=== PATIENT | female | born 1980 | race Caucasian/White ===

== ENCOUNTER 2024-05-07 10:32 | Emergency (ER) | payer OTHER, SELFPAY ==
[2024-05-07 11:06] VITALS: BP 118/80; PULSE 90; TEMP 36.3
--- NOTE | 2024-05-07 11:19 | ED.URI ---
HPI - URI/Sore Throat General Chief Complaint: Upper Respiratory Infection Stated Complaint: sore throat History of Present Illness HPI Narrative: 43-year-old female presented for complaint of sore throat for 3 days. She says she has white patches on the uvula. Reports fatigue for over one week. Denies cough, sob, n/v/d/f/c. Related Data Home Medications ?Medication ?Instructions ?Recorded ?Confirmed ?Last Taken ?Type albuterol sulfate 90 mcg/actuation 1 inhalation inhalation Q4H 06/04/19 03/11/22 Unknown History aerosol inhaler aspirin 81 mg tablet,delayed 81 mg PO DAILY 12/09/20 03/11/22 Unknown History release (Adult Aspirin Regimen) Allergies Allergy/AdvReac Type Severity Reaction Status Date / Time Penicillins Allergy Mild hives Verified 05/07/24 11:06 Sulfa (Sulfonamide Allergy Mild Hives Verified 05/07/24 11:06 Antibiotics) coconut Allergy unknown Verified 05/07/24 11:06 egg Allergy unknown Verified 05/07/24 11:06 lactose AdvReac Intermediate Gastrointestinal Verified 05/07/24 11:06 Upset Review of Systems Review of Systems: CONSTITUTIONAL: Denies body aches, fever, chills, or sweats. EYES: Denies visual changes, redness, or discharge. ENT: Reports sore throat Denies rhinorrhea, congestion, or otalgia. CARDIOVASCULAR: Denies chest pain, palpitations, or edema. RESPIRATORY: Denies dyspnea. GASTROINTESTINAL: Denies abdominal pain, nausea, vomiting, or diarrhea. SKIN: Denies rash MUSCULOSKELETAL: Denies back pain, joint pain, or myalgia. NEUROLOGIC: Denies headache [facility] Past Medical History Medical History Asthma Acute tonsillitis Splenic infarct Family History Family History Father Alcoholism Mother Asthma Cancer Sibling Asthma Social History Social History Smoking status: Current every day smoker Second hand tobacco smoke exposure: No Alcohol intake: never Substance use: unknown Lack of Transportation: No Lack of Food: Never True Current Housing: I Have Housing Concerned About Future Housing: No Difficulty Paying Gas/Electric Bills: No Difficulty Paying for Meds: No Currently Unemployed: No Education: Bachelor's Degree Difficulty w/ Childcare or Family Care: No Exam Narrative: GENERAL: well-appearing, no acute distress. EYES: conjunctivae clear ENT: Mucous membranes moist. TM pearly quesada with normal light reflex bilaterally; no tragal tenderness. Oropharynx erythematous without lesions. Distal uvula irregular with white patchy discoloration. Tonsils enlarged 2+ and without exudate. No drooling, no hoarseness, no trismus, uvula midline. No tripod positioning, hot potato voice, or soft palate swelling. NECK: Supple. No lymphadenopathy CHEST: Clear to auscultation, breath sounds equal. No respiratory distress, speaks in full sentences. HEART: Regular rate and rhythm. No murmur heard. SKIN: Warm, dry, no rash. NEURO: Alert and oriented x3. Course Course Emergency Course: Patient is aware of diagnosis, understands and agrees to treatment plan. Anticipatory guidance given. Patient agrees to follow-up as directed and is aware of reasons to seek care at the emergency department. Portions of this record may have been created with voice recognition software Level of Care: Express Care Visit Vital Signs Vital signs: Vital Signs Temperature 97.3 F L 05/07/24 11:06 Pulse Rate 90 05/07/24 11:06 Blood Pressure 118/80 05/07/24 11:06 Temperature 97.3 F L 05/07/24 11:06 Pulse Rate 90 05/07/24 11:06 Blood Pressure 118/80 05/07/24 11:06 MDM - URI/Sore Throat MDM Narrative Medical decision making narrative: Neg strep result reviewed with pt. discussed physical exam findings with patient. Declines mono testing. Will send ENT referral for the irregular uvula and hx smoking. Advise supportive treatments. Patient is appropriate for outpatient treatment and follow-up. Differential Diagnosis Differential diagnosis: Likely upper respiratory infection, viral infection and pharyngitis Lab Data Labs: Lab Results 05/07/24 Range/Units 11:31 POC Grp A Strep Screen Negative (Negative) Discharge Plan Discharge Clinical Impression: Pharyngitis Patient Disposition: Home, Self-Care Condition: Stable Instructions: Antibiotic Form, Pharyngitis (ED) Additional Instructions: - Take the antibiotic as directed. Fever and sore throat typically resolve within one to three days. Most patients can return to work after 12 to 24 hours of antibiotic therapy, provided you are fever free and otherwise well. -Eat and drink things that are easy to swallow, like soft foods, cool liquids, tea with honey, or popsicles . -Salt water gargles and/or may use topical anesthetic ( Chloraseptic spray) or lozenges to relieve dryness or throat pain -Alternate Tylenol and ibuprofen as needed for pain and fever as directed. -Frequent hand washing or hand cylinder press operator is one of the best ways to prevent spread of infection. Throw away the toothbrush after 24hours of antibiotic. -Follow up with primary care provider in 2-3 days if condition is not improving -Go to the ER if you have trouble breathing, cannot drink enough fluids, have muffled voice or drooling, difficulty opening your mouth, or severe swelling. Patient Language: Welsh Prescriptions: New methylprednisolone [Medrol (Keyshawn)] 4 mg tablets,dose pack See Rx Instructions .ROUTE .COMPLEX Qty: 21 0RF Rx Instructions: orally per package directions cefdinir 300 mg capsule 300 mg PO Q12H Qty: 14 0RF No Action albuterol sulfate 90 mcg/actuation HFA aerosol inhaler 1 inhalation INHALATION Q4H minoxidil 5 % solution 1 ml topical BID Qty: 120 0RF aspirin [Adult Aspirin Regimen] 81 mg tablet,delayed release (DR/EC) 81 mg PO DAILY Follow-up/Referrals: Michelle,Russell Tellez [Other] Eliezer,MD Yvan [Non-Staff] - Time of Disposition: 11:37
[2024-05-07 11:37] LABS: EDSTREPNEGPOS1 Negative (Negative)
== END 2024-05-07 11:38 | disposition home or self-care (01) ==
PROVIDERS: Emergency Provider Nurse Practitioner Family
DX: J02.9 Acute pharyngitis, unspecified (principal); F17.200 Nicotine dependence, unspecified, uncomplicated; J45.909 Unspecified asthma, uncomplicated; Z79.82 Long term (current) use of aspirin
CPT/HCPCS: 87081; 87880; 99213; G0463

== ENCOUNTER 2024-09-09 09:33 | Emergency (ER) | payer OTHER, SELFPAY ==
[2024-09-09 09:41] VITALS: BP 122/82; PULSE 93; RESP 18; TEMP 36.2; O2SAT 98
--- NOTE | 2024-09-09 09:53 | ED.FEMALEGU ---
HPI - Female Genitourinary General Chief complaint: Urogenital-Female Stated complaint: Possible UTI Time Seen by Provider: 09/09/24 10:05 Source: patient Mode of arrival: ambulatory Limitations: no limitations History of Present Illness HPI Narrative: Here with A 3 day history of body aches, bilateral kidney pressure, painful urination, some chills, and headache. She denies any nausea, vomiting, or fever. Denies abdominal or pelvic pain. She endorses headaches and dizziness at times. She reports she is drinking tons of water. She reports helping her brother move 1 week ago and not drinking for most of the day. She reports worrying she may develop a UTI after this. She does have a history of UTIs and 1 kidney infection in the past. She notes that with her previous kidney infection in the past, she had much worse symptoms and she felt like she was dying. Related Data Home Medications ?Medication ?Instructions ?Recorded ?Confirmed ?Last Taken ?Type albuterol sulfate 90 mcg/actuation 1 inhalation inhalation Q4H 06/04/19 03/11/22 Unknown History aerosol inhaler aspirin 81 mg tablet,delayed 81 mg PO DAILY 12/09/20 03/11/22 Unknown History release (Adult Aspirin Regimen) Allergies Allergy/AdvReac Type Severity Reaction Status Date / Time Penicillins Allergy Mild hives Verified 09/09/24 09:52 Sulfa (Sulfonamide Allergy Mild Hives Verified 09/09/24 09:52 Antibiotics) coconut Allergy unknown Verified 09/09/24 09:52 egg Allergy unknown Verified 09/09/24 09:52 lactose AdvReac Intermediate Gastrointestinal Verified 09/09/24 09:52 Upset Review of Systems Review of Systems: CONSTITUTIONAL: Denies fever, or sweats. Reports sweats. EYES: Denies visual changes, redness, or discharge. ENT: Denies rhinorrhea, congestion, sore throat, or otalgia. CARDIOVASCULAR: Denies chest pain, palpitations, or edema. RESPIRATORY: Denies cough or dyspnea. GASTROINTESTINAL: Denies abdominal pain, nausea, vomiting, or diarrhea. GENITOURINARY: Reports dysuria. Denies hematuria.Reports increased urinary frequency. SKIN: Denies rash or itching. MUSCULOSKELETAL: Denies back pain, joint pain, or myalgia. Reports pain around kidneys when she takes deep breaths. NEUROLOGIC: Denies numbness, or weakness. PSYCHIATRIC: Denies anxiety or depression. All other systems reviewed are negative, except as documented in HPI. [facility] Past Medical History Medical History Asthma Acute tonsillitis Splenic infarct Family History Family History Father Alcoholism Mother Asthma Cancer Sibling Asthma Social History Social History Smoking status: Current every day smoker Second hand tobacco smoke exposure: No Alcohol intake: never Substance use: unknown Lack of Transportation: No Lack of Food: Never True Current Housing: I Have Housing Concerned About Future Housing: No Difficulty Paying Gas/Electric Bills: No Difficulty Paying for Meds: No Currently Unemployed: No Education: Bachelor's Degree Difficulty w/ Childcare or Family Care: No Comments Reviewed. Exam Narrative: GENERAL: This is a well-nourished, well-developed patient, in no apparent distress. HEAD: normocephalic, atraumatic. EYES: No drainage. EARS: External ears normal without drainage. NOSE: External nose normal with no obvious nasal discharge. THROAT: Mucous membranes moist, posterior pharynx clear. NECK: Trachea midline. CARDIOVASCULAR: Regular rate and rhythm without murmurs, gallops, or rubs. RESPIRATORY: Clear to auscultation. Breath sounds equal bilaterally. No wheezes, rales, or rhonchi. SKIN: warm, Dry, intact with no suspicious lesions or rash, good texture and turgor. NEURO: awake, alert, and oriented to person, place and time. There were no obvious focal neurologic abnormalities. EXTREMITIES: No joint tenderness, effusion, or edema noted. BACK: Nontender without deformity. No CVA tenderness. Course Course Emergency Course: Patient is aware of diagnosis, understands and agrees to treatment plan. Anticipatory guidance was given. Patient agrees to follow-up as directed and is aware of reasons to seek care at the emergency department. Level of Care: Express Care Visit Vital Signs Vital signs: Vital Signs Temperature 36.2 C L 09/09/24 09:41 Pulse Rate 93 09/09/24 09:41 Respiratory Rate 18 09/09/24 09:41 Blood Pressure 122/82 09/09/24 09:41 Pulse Oximetry 98 04/21/25 09:41 Oxygen Delivery Room Air 09/09/24 09:41 Temperature 36.2 C L 09/09/24 09:41 Pulse Rate 93 09/09/24 09:41 Respiratory Rate 18 09/09/24 09:41 Blood Pressure 122/82 09/09/24 09:41 Pulse Oximetry 98 09/09/24 09:41 Oxygen Delivery Room Air 09/09/24 09:41 Reviewed. MDM - Female Genitourinary MDM Narrative Medical decision making narrative: Here with urinary symptoms of burning and increased frequency. UA showed +blood, leukocytes, and protein. SG was 1.025. Reviewed UTI vs complicated UTI considering kidney pain with deep breaths. Treated for complicated UTI. Shared decision making with patient based on UA results and medications chosen to treat. Lab Data Lab results narrative: UA results reviewed +blood, protein, and leukocytes. SG 1.025. Discharge Plan Discharge Clinical Impression: Complicated UTI (urinary tract infection) Patient Disposition: Home Condition: Stable Instructions: Antibiotic Form, Urinary Tract Infection in Women (DC) Additional Instructions: Take medications as prescribed.? Follow printed instructions provided. Follow-up with primary care provider. Go to the ER for any worsening symptoms or concerns. Patient Language: Puerto Rican Prescriptions: New ciprofloxacin HCl 500 mg tablet 500 mg PO Q12H 7 Days Qty: 14 0RF phenazopyridine 200 mg tablet 200 mg PO TID Qty: 6 0RF No Action albuterol sulfate 90 mcg/actuation HFA aerosol inhaler 1 inhalation INHALATION Q4H aspirin [Adult Aspirin Regimen] 81 mg tablet,delayed release (DR/EC) 81 mg PO DAILY Follow-up/Referrals: Denys,Russell Tellez DO [Primary Care Provider] - Time of Disposition: 10:24
[2024-09-09 10:00] LABS: EDUAAPPEAR Cloudy; EDUABILI Negative (Negative); EDUABLOOD Trace (Negative); EDUACOLOR1 Yellow; EDUAGLUCOSE Negative (Negative); EDUAKETONE Negative (Negative); EDUALEUKO 1+ (Negative); EDUANITRATE Negative (Negative); EDUAPH 6.5; EDUAPROTEIN Trace (Negative); EDUASPGRAVITY 1.025
--- OUTSIDE RECORDS SUMMARY | 2024-09-09 10:36 | XMS_ITS | Clinical Summary ---
Author Organization [facility] Address [address], [place] [address] [place] [address] Phone Care Team Providers Care Hand Former Name Role Phone Unavailable Primary Care Provider Unavailabl e Allergies Active Allergy Reactions Criticality Noted Date Comments Clarithromycin Hives 04/07/2017 Coconut (Cocos Nucifera) Anaphylaxis High 04/07/2017 Egg-Derived Products Unknown 04/07/2017 Lactose Nausea 04/07/2017 Oxycodone-Acetaminophen Shortness of Breath High Penicillins Hives 04/07/2017 Medications albuterol (PROVENTIL, VENTOLIN) (5 MG/ML) 0.5% Nebulizer Soln take by inhalation as needed. Active Xarelto 20 MG Tablet TAKE 1 TABLET DAILY WITH DINNER FOR PREVENTION OF UNWANTED CLOT IN VEINS 30 Tab 11 0 Active aspirin 81 MG Chewable Tablet Take 81 mg by mouth. 0 Active cephALEXin (KEFLEX) 500 MG Capsule 0 Active enoxaparin (LOVENOX) 100 MG/ML Solution 0 Active Active Problems Problem Noted Date Diagnosed Date Encounter for smoking cessation counseling 10/23 Hepatitis B surface antigen positive 07/11/2019 Elevated liver enzymes 07/04/2019 Anemia 06/06/2019 Leukocytosis 06/06/2019 Splenic infarct 04/14/2017 Immunizations Immunization Administration Dates Next Due Tuberculin Skin Test; Purifi ed Protein Derivative Solutiol 04/06/2011 Family History Medical History Relation Name Comments Cancer Mother ovarian, uterin e, hodgkins, and unknown Glaucoma Mother Relation Name Status Comments Mother Social History Tobacco Use Types Packs/Day Years Used Date Smoking Tobacco: Every Day Cigarettes Started: 04/14/1992 Smokeless Tobacco: Never Tobacco Cessation:Ready to Q uit: No Alcohol Use Standard Drinks/Week Comments No 0 (1 standard drink = 0.6 oz pur e alcohol) PHQ-2 Answer Date Recorded PHQ-2 Score 0 06/06/2019 Comments No Sex and Gender Information Value Date Recorded Sex Assigned at Not on file Legal Sex Female 10:29 AM ONCOLOGY NURSE Gender Identity Not on file Sexual Orientation Not on file Last Filed Vital Signs Vital Sign Reading Time Taken Comments Blood Pressure 118/58 04/23/2020 12:25 PM ONCOLOGY NURSE Pulse 78 04/23/2020 12:25 PM ONCOLOGY NURSE Temperature 36.9 C (98.4 F) 04/23/2020 12:25 PM ONCOLOGY NURSE Respiratory Rate 18 04/23/2020 12:25 PM ONCOLOGY NURSE Oxygen Saturation 98% 04/23/2020 12:25 PM ONCOLOGY NURSE Inhaled Oxygen Concentration - - Weight 96.7 kg (213 lb 3.2 oz) 04/23/2020 12:25 PM ONCOLOGY NURSE Height 175.3 cm (5' 9 ) 07/11/2019 2:51 PM ONCOLOGY NURSE Body Mass Index 31.48 07/11/2019 2:51 PM ONCOLOGY NURSE Plan of Treatment Health Maintenance Due Date Last Done Comments TdaP Immunization 1978 Hepatitis B Immunization (1 of 3 - 19+ 3-dose series) 1997 Colonoscopy 09/08/2023 Colorectal Cancer Screening 09/08/2023 Influenza Immunization (#1) 2024 SARS-COV-2 Immunization ( season) 2024 Respiratory Syncytial Virus (RSV) Immunization (Adult) (1 - 1-dose 75+ series) 2053 Hepatitis C Virus (HCV) Screening Completed 020 Meningococcal Immunization (ACWY) Aged Out No longer eligible based on patient's age to complete this topic Pneumococcal Immunization Combined Aged Out No longer eligible based on patient's age to complete this topic Rotavirus Immunization Aged Out No lo nger eligible based on patient's age to complete this topic Insurance [employer]
--- OUTSIDE RECORDS SUMMARY | 2024-09-09 10:36 | XMS_ITS | Clinical Summary ---
Author Organization [facility] Address [address] [place] [id number] Care Team Providers Care Pole Setter Name Role Phone Kilo Zamora MD Primary Care Provider Unava ilable Allergies Active Allergy Reactions Criticality Noted Date Comments Clarithromycin Hives 04/07/2017 Coconut (Cocos Nucifera) Anaphylaxis,Unknown High Egg-Derived Products GI Upset,Unknown 7 Lactose GI Upset,Nausea Only 04/07/2017 Penicillins Hives,Rash Low 12/26/2014 Oxycodone-Acetaminophen Shortness of Breath High Sulfacetamide Hives,Rash Low 12/26/2014 Medications albuterol (5 MG/ML) 0.5% nebulizer solution Take 2.5 mg by nebulization every 6 (six) hours as needed for Wheezing or Shortness of breath (only uses a few times a year). Active aspirin 81 MG chewable tablet Chew 1 tablet (81 mg total) by mouth daily. 30 tablet 0 Active Active Problems Problem Noted Date Diagnosed Date Splenic infarct 06/01/2019 Splenic infarct 04/14/2017 Abdominal pain 04/07/2017 Infarction of spleen 04/07/2017 Asthma ([facility]) 12/28/2014 Overview (06/01/2019): -triggered by chemicals Family History Medical History Relation Comments Cancer Mother Glaucoma Mother hodgkin's disease Mother Relation Status Comments Mother Social History Tobacco Use Types Packs/Day Years Used Date Smoking Tobacco: Every Day Cigarettes 0.3 25 Smokeless Tobacco: Never Tobacco Cessation:Ready to Q uit: Yes; Counseling Given: No Alcohol Use Standard Drinks/Week Comments No 0 (1 standard drink = 0.6 oz pur e alcohol) Comments No Sex and Gender Information Value Date Recorded Sex Assigned at Not on file Legal Sex Female 7:55 PM CDT Gender Identity Not on file Sexual Orientation Not on file Last Filed Vital Signs Vital Sign Reading Time Taken Comments Blood Pressure 125/77 11/16/2019 7:21 AM CDT Pulse 80 11/16/2019 7:21 AM CDT Temperature 36.4 C (97.5 F) 11/16/2019 7:21 AM CDT Respiratory Rate 16 11/16/2019 7:21 AM CDT Oxygen Saturation 98% 11/16/2019 7:21 AM CDT Inhaled Oxygen Concentration - - Weight 97.5 kg (215 lb) 11/16/2019 7:21 AM CDT Height 175.3 cm (5' 9 ) 11/16/2019 7:21 AM CDT Body Mass Index 31.75 11/16/2019 7:21 AM CDT Plan of Treatment Health Maintenance Due Date Last Done Comments Cervical Cancer Screening Pap Smear (Age 30 to 64) Every 3 Years 1978 Colorectal Cancer Screening Colonoscopy (10 Years) 1978 Annual Physical 1981 Hepatitis B Vaccines (2 of 3 - 3-dose series) 08/23/1996 07/26/1996 Pneumococcal Vaccine: Pediatrics (0 to 5 Years) and At-Risk Patients (6 to 49 Years) (1 of 2 - PCV) 1997 Cervical Cancer Screening Pap with HPV Testing (Age 30 to 64) Every 5 Years 2008 Cervical Cancer Screening with HPV 2008 Mammogram Screening 2018 DTaP, Tdap and Td Vaccines (5 - Td or Tdap) 02/12/2020 02/11/2010, 11/10/1992, 01/16/1984, Additional history exists COVID-19 Vaccine ( - 2023- season) 2024 Hepatitis C Completed 07/04/2019 HPV Vaccines Aged Out No longer eligi ble based on patient's age to complete this topic Meningococcal B Vaccine Aged Out No l onger eligible based on patient's age to complete this topic Meningococcal Vaccine Aged Out No melissa armando eligible based on patient's age to complete this topic RSV Immunizations Under 20 Months Aged Out No longer eligible based on patient's age to complete this topic Procedures Procedure Name Priority Date/Time Associated Diagnosis Comments HEPATITIS C ANTIBODY Routine 07/04/2019 4:00 PM STUDIO OPERATION ENGINEER Splenic infarct Anemia, unspecified type Leukocytosis, unspecified type Elevated liver enzymes from Last 3 Months or Most Recently Relevant to Health Maintenance Results * HEPATITIS C ANTIBODY (07/04/2019 4:00 PM STUDIO OPERATION ENGINEER) HEPATITIS C AB NON-REACTI VE NON-REACTI VE 07/05/2019 10:25 AM STUDIO OPERATION ENGINEER [facility] 07/04/2019 4:00 PM STUDIO OPERATION ENGINEER us Rolanda Priest [facility] Final Res ult [facility] [address] [place] [address], from Last 3 Months or Most Recently Relevant to Health Maintenance Insurance Advance Directives * Full Code (Latest Code Status on File) Date Activated Date Inactivated Comments 06/01/2019 5:22 AM 06/01/2019 9:18 PM * Full Code Date Activated Date Inactivated Comments 04/07/2017 8:40 AM 04/09/2017 2:46 PM * Full Code Date Activated Date Inactivated Comments 04/07/2017 3:23 AM 04/07/2017 8:40 AM Care Teams Pole Setter Relationship Specialty Start Date End Date Kilo Zamora MD PCP - General INTERNAL MEDICINE 04/08/17
== END 2024-09-09 10:28 | disposition home or self-care (01) ==
PROVIDERS: Emergency Provider Nurse Practitioner; PCP Internal Medicine
DX: N39.0 Urinary tract infection, site not specified (principal); J45.909 Unspecified asthma, uncomplicated; F17.200 Nicotine dependence, unspecified, uncomplicated
CPT/HCPCS: 81003; 87086; 87186; 99213; G0463

== ENCOUNTER 2025-05-13 16:54 | Emergency (ER) | payer OTHER, SELFPAY ==
--- OUTSIDE RECORDS SUMMARY | 2025-05-13 16:56 | XMS_ITS | Clinical Summary ---
Author Organization [facility] Address [address] [place] [address] Care Team Providers Care Press Operator [employer] Name Role Phone Kilo Zamora MD Primary Care Provider Unava ilable Allergies Active Allergy Reactions Criticality Noted Date Comments Clarithromycin Hives 04/07/2017 Coconut (Cocos Nucifera) Anaphylaxis,Unknown High Egg Protein-Containing Drug Products GI Upset,Unknown 04/07/2017 Lactose GI Upset,Nausea Only 04/07/2017 Penicillins Hives,Rash [...] pain 04/07/2017 Infarction of spleen 04/07/2017 Asthma 12/28/2014 Overview (06/01/2019): -triggered by chemicals Family [...] 7:21 AM CDT Height 175.3 cm (5' 9) 11/16/2019 7:21 AM CDT Body Mass Index [...] Additional history exists COVID-19 Vaccine ( - 2024- season) 2025 Influenza Adult (#1) 2025 Hepatitis C Completed 07/04/2019 Hepatitis A Vaccines Aged Out No long er eligible based on patient's age to complete [...] HEPATITIS C ANTIBODY Routine 07/04/2019 4:00 PM CONTINUOUS IMPROVEMENT COORDINATOR Splenic infarct Anemia, unspecified type Leukocytosis, unspecified type Elevated liver enzymes from Last 3 Months or Most Recently Relevant to Health Maintenance Results * HEPATITIS C ANTIBODY (07/04/2019 4:00 PM CONTINUOUS IMPROVEMENT COORDINATOR) HEPATITIS C AB NON-REACTI VE NON-REACTI VE 07/05/2019 10:25 AM CONTINUOUS IMPROVEMENT COORDINATOR [facility] 07/04/2019 4:00 PM CONTINUOUS IMPROVEMENT COORDINATOR us Rolanda Priest 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 LABORATORY Final Res ult [facility] [address] [place] [address], from Last 3 Months or Most Recently Relevant to Health Maintenance Insurance Advance Directives * Full Code (Latest Code Status on File) Date Activated Date Inactivated Comments 06/01/2019 5:22 AM 06/01/2019 9:18 PM * Full Code Date Activated Date Inactivated Comments 04/07/2017 8:40 AM 04/09/2017 2:46 PM * Full Code Date Activated Date Inactivated Comments 04/07/2017 3:23 AM 04/07/2017 8:40 AM Care Teams Press Operator [employer] Relationship Specialty Start Date End Date Kilo Zamora MD PCP - General INTERNAL MEDICINE 04/08/17
--- OUTSIDE RECORDS SUMMARY | 2025-05-13 16:56 | XMS_ITS | Clinical Summary ---
Author Organization [facility] Address [address] [place] [address] Phone Care Team Providers Care Pillow Filler Name Role Phone Unavailable Primary Care Provider Unavailabl e Allergies Active Allergy Reactions Criticality Noted Date Comments Clarithromycin Hives 04/07/2017 Coconut (Cocos Nucifera) Anaphylaxis High 04/07/2017 Egg Protein-Containing Drug Products Unknown 04/07/2017 Lactose Nausea 04/07/2017 Oxycodone-Acetaminophen [...] Used Date Smoking Tobacco: Every Day Cigarettes 33.1 Started: 04/14/1992 Smokeless Tobacco: Never Tobacco Cessation:Ready to Q uit: No Alcohol Use Standard Drinks/Week Comments No 0 (1 standard drink = 0.6 oz pur e alcohol) PHQ-2 Answer Date Recorded PHQ-2 Score 0 06/06/2019 Comments No Sex and Gender Information Value Date Recorded Sex Assigned at Not on file Legal Sex Female 10:29 AM SOUND DESIGNER Gender Identity Not on file Sexual Orientation Not on file Last Filed Vital Signs Vital Sign Reading Time Taken Comments Blood Pressure 118/58 04/23/2020 12:25 PM SOUND DESIGNER Pulse 78 04/23/2020 12:25 PM SOUND DESIGNER Temperature 36.9 C (98.4 F) 04/23/2020 12:25 PM SOUND DESIGNER Respiratory Rate 18 04/23/2020 12:25 PM SOUND DESIGNER Oxygen Saturation 98% 04/23/2020 12:25 PM SOUND DESIGNER Inhaled Oxygen Concentration - - Weight 96.7 kg (213 lb 3.2 oz) 04/23/2020 12:25 PM SOUND DESIGNER Height 175.3 cm (5' 9) 07/11/2019 2:51 PM SOUND DESIGNER Body Mass Index 31.48 07/11/2019 2:51 PM SOUND DESIGNER Plan of Treatment Health Maintenance Due Date Last Done Comments TdaP Immunization 1978 Hepatitis B Immunization (1 of 3 - 19+ 3-dose series) 1997 Pap Smear 09/08/1999 Cervical Cancer Screening (CCS) 2008 HPV/Cotest 2008 Cologuard 09/08/2023 Colonoscopy 09/08/2023 Colorectal Cancer Screening 09/08/2023 Immunochemical Fecal Occult Blood 09/08/2023 Influenza Immunization (#1) 2025 SARS-COV-2 Immunization ( season) 2025 Respiratory Syncytial Virus (RSV) Immunization (Adult) (1 - 1-dose 75+ series) 2053 Hepatitis C Virus (HCV) Screening Completed 020 Human Papillomavirus (HPV) Immunization (No Doses Required) Completed Meningococcal Immunization (ACWY) Aged Out No longer eligible based on patient's age to complete this topic Pneumococcal Immunization Combined Aged Out No longer eligible based on patient's age to complete this topic Rotavirus Immunization Aged Out No lo nger eligible based on patient's age to complete this topic Insurance [facility]
[2025-05-13 17:06] VITALS: BP 140/78; PULSE 84; RESP 18; TEMP 37.2; O2SAT 99
--- NOTE | 2025-05-13 17:15 | ED.FEMALEGU ---
HPI - Female Genitourinary General Chief complaint: Urogenital-Female Stated complaint: UTI Source: patient Mode of arrival: ambulatory Limitations: no limitations History of Present Illness HPI Narrative: This is a 44 y/o female patient that presents to the urgent care with reports of dysuria and frequency of urination. Patient states 05/03/25 she had dysuria frequency. Patient states at that time she started taking azo urinary and cefdinir 300 mg capsules. She states she took the cefdinir every single day for 7 days as well as azo urinary for 3 days 3 times daily. She states by this for Monday when she finished the cefdinir she felt much improved. She states however Monday she noted she was urinating frequently, Monday she started having some dysuria as well as frequency, and today she has dysuria that is worse. She denies any fever or chills she denies any abdominal pain. Denies any nausea vomiting or diarrhea. MD elicited complaint: dysuria and UTI Severity: mild Female Urogenital Radiation: Non-Radiating Treatment prior to arrival: OTC urinary analgesics and other ( Leftover cefdinir 300 mg p.o. daily for 7 days) Sexual activity: No Patient : No Related Data Home Medications ?Medication ?Instructions ?Recorded ?Confirmed ?Last Taken ?Type albuterol sulfate 90 mcg/actuation 1 inhalation inhalation Q4H 06/04/19 03/11/22 Unknown History aerosol inhaler aspirin 81 mg tablet,delayed 81 mg PO DAILY 12/09/20 03/11/22 Unknown History release (Adult Aspirin Regimen) Allergies Allergy/AdvReac Type Severity Reaction Status Date / Time Penicillins Allergy Mild hives Verified 05/13/25 16:57 Sulfa (Sulfonamide Allergy Mild Hives Verified 05/13/25 16:57 Antibiotics) coconut Allergy unknown Verified 05/13/25 16:57 egg Allergy unknown Verified 05/13/25 16:57 lactose AdvReac Intermediate Gastrointestinal Verified 05/13/25 16:57 Upset Review of Systems Review of Systems: All systems reviewed & are unremarkable except as noted in HPI and below PMFSH Past Medical History Medical History Asthma Acute tonsillitis Splenic infarct Family History Family History Father Alcoholism Mother Asthma Cancer Sibling Asthma Social History Social History Smoking status: Current every day smoker Second hand tobacco smoke exposure: No Alcohol intake: never Substance use: unknown Lack of Transportation: No Lack of Food: Never True Current Housing: I Have Housing Concerned About Future Housing: No Difficulty Paying Gas/Electric Bills: No Difficulty Paying for Meds: No Currently Unemployed: No Education: Bachelor's Degree Difficulty w/ Childcare or Family Care: No Exam Const: General: healthy appearing Nutritional Appearance: well nourished Orientation/consciousness: patient oriented x3 Limitations: no limitations HENMT: Head: normal to inspection Ears: external ears normal Face/Nose/Sinus: Normal external nose present Face and sinus: normal facial exam Mouth: Yes Normal oral and palatal mucosa present Teeth and gingiva: dentition normal Throat: posterior oropharynx normal Eyes: Conjunctivae: conjunctivae normal Pupils: Equal, round and reactive pupils present EOM: EOMs intact bilaterally Neck: Neck: normal visual inspection and no lymphadenopathy Chest: Chest palpation & inspection: normal inspection of the chest Resp: Effort & Inspection: normal respiratory effort Auscultation: clear to auscultation bilaterally Cardio: Rate: regular rate Rhythm: regular rhythm GI: GI Palp: Yes Soft to palpation Auscultation: normal bowel sounds : General: Yes Bladder palpation abnormal tender and Yes no CVA tenderness Back/Spine/Pelvis: Back: no CVA tenderness Skin: General skin exam: normal color Rashes: no rashes Wounds: no wounds Neuro: General: patient oriented x3 Cranial nerves: Yes Nystagmus not present Speech: normal speech Gait exam (Neuro): Normal gait present Extrem: General: normal to inspection Psych: Appearance: grossly normal Mental Status: mental status grossly normal Affect: normal affect Attitude: cooperative Course Course Emergency Course: This is a 44 y/o female patient that presents to the urgent care with reports of dysuria and frequency of urination. Patient states 05/03/25 she had dysuria frequency. Patient states at that time she started taking azo urinary and cefdinir 300 mg capsules. She states she took the cefdinir every single day for 7 days as well as azo urinary for 3 days 3 times daily. She states by this for Monday when she finished the cefdinir she felt much improved. She states however Monday she noted she was urinating frequently, Monday she started having some dysuria as well as frequency, and today she has dysuria that is worse. She denies any fever or chills she denies any abdominal pain. Denies any nausea vomiting or diarrhea. vital signs stable. Urinalysis ordered and resulted with 1+ leuks, trace blood. Urine culture ordered. discussed with patient that she has previously taken azo as well as an antibiotic, concerned that her urine and may not show on Urinalysis, will send for culture. Discussed the treatment options and outpatient management. She verbalizes understanding. Answered all her questions to her satisfaction she is agreeable plan. Educated patient to Increase fluids, rest, take Antibiotic as prescribed until completed, continue with azo urinary as package instructions, Tylenol and ibuprofen as needed for pain, avoid baths, hot tubs, swimming, follow up with primary MD in the next 2-3 days for further evaluation and exam. internal questions to her satisfaction she is agreeable plan. Patient denies any further needs or concerns to be addressed prior to discharged. Level of Care: Express Care Visit MDM MDM Narrative Medical decision making narrative: This is a 44 y/o female patient that presents to the urgent care with reports of dysuria and frequency of urination. Patient states 05/03/25 she had dysuria frequency. Patient states at that time she started taking azo urinary and cefdinir 300 mg capsules. She states she took the cefdinir every single day for 7 days as well as azo urinary for 3 days 3 times daily. She states by this for Monday when she finished the cefdinir she felt much improved. She states however Monday she noted she was urinating frequently, Monday she started having some dysuria as well as frequency, and today she has dysuria that is worse. She denies any fever or chills she denies any abdominal pain. Denies any nausea vomiting or diarrhea. vital signs stable. Urinalysis ordered and resulted with 1+ leuks, trace blood. Urine culture ordered. discussed with patient that she has previously taken azo as well as an antibiotic, concerned that her urine and may not show on Urinalysis, will send for culture. Discussed the treatment options and outpatient management. She verbalizes understanding. Answered all her questions to her satisfaction she is agreeable plan. Educated patient to Increase fluids, rest, take Antibiotic as prescribed until completed, continue with azo urinary as package instructions, Tylenol and ibuprofen as needed for pain, avoid baths, hot tubs, swimming, follow up with primary MD in the next 2-3 days for further evaluation and exam. internal questions to her satisfaction she is agreeable plan. Patient denies any further needs or concerns to be addressed prior to discharged. Differential Diagnosis Differential Diagnosis: UTI Medical Records I have reviewed the following patient records and this information was taken into consideration when formulating the assessment and plan.: previous labs and previous clinic visits Lab Data MDM Lab Attestation statement: I personally reviewed the patient's lab results. Discharge Plan Discharge Clinical Impression: Urinary tract infection Qualifiers: Urinary tract infection type: site unspecified Hematuria presence: without hematuria Qualified Code(s): N39.0 - Urinary tract infection, site not specified Patient Disposition: Home Condition: Stable Instructions: Antibiotic Form, Urinary Tract Infection in Women (ED) Additional Instructions: Increase fluids rest take Antibiotic as prescribed until completed continue with azo urinary as package instructions Tylenol and ibuprofen as needed for pain avoid baths, hot tubs, swimming follow up with primary MD in the next 2-3 days for further evaluation and exam Patient Language: Nigerian Prescriptions: New cephalexin 500 mg capsule 500 mg PO Q8H Qty: 21 0RF No Action ciprofloxacin HCl 500 mg tablet 500 mg PO Q12H 7 Days Qty: 14 0RF phenazopyridine 200 mg tablet 200 mg PO TID Qty: 6 0RF albuterol sulfate 90 mcg/actuation HFA aerosol inhaler 1 inhalation INHALATION Q4H aspirin [Adult Aspirin Regimen] 81 mg tablet,delayed release (DR/EC) 81 mg PO DAILY Follow-up/Referrals: PHYSICIAN,MEDICAL INSTRUCTOR [Primary Care Provider, Internal Medicine] Time of Disposition: 17:20
[2025-05-13 17:19] LABS: EDUAAPPEAR Clear; EDUABILI Negative (Negative); EDUABLOOD Trace (Negative); EDUACOLOR1 Light/Pale; EDUAGLUCOSE Negative (Negative); EDUAKETONE Negative (Negative); EDUALEUKO 1+ (Negative); EDUANITRATE Negative (Negative); EDUAPH 7.0; EDUAPROTEIN Negative (Negative); EDUASPGRAVITY 1.010; EDUAUROBILI 0.2
== END 2025-05-13 17:23 | disposition home or self-care (01) ==
PROVIDERS: Emergency Provider Nurse Practitioner Family
DX: N39.0 Urinary tract infection, site not specified (principal); Z79.82 Long term (current) use of aspirin; F17.200 Nicotine dependence, unspecified, uncomplicated; J45.909 Unspecified asthma, uncomplicated
CPT/HCPCS: 81003; 87086; 99213; G0463